=== PATIENT | male | born 1965 | race Caucasian/White ===

== ENCOUNTER 2017-07-17 14:59 | Emergency (ER) | payer OTHER ==
[~2017-07-17] VITALS: Ht 180.3 cm; Wt 88.5 kg
[2017-07-17 15:25] VITALS: BP 125/69
--- NOTE | 2017-07-17 18:07 | NUR ---
Patient to bed 05.
--- NOTE | 2017-07-17 18:08 | NUR ---
PT PRESENTS TO ER W/C/O RIGHT UPPER TOOTHACHE X1 WEEK. PT DENIES ANY MEDICAL HX.DENIES N/V/D; SKIN IS PINK/WARM/DRY; AAOX4 WITH EVEN AND STEADY GAIT; LUNGS CLEAR BL; HR EVEN AND REGULAR; PT DENIES ANY FEVER, CP, SOB, OR COUGH AT THIS TIME; PATIENT STATES PAIN OF 10/10 AT THIS TIME; VSS; PATIENT POSITIONED FOR COMFORT; HOB ELEVATED; BEDRAILS UP X2; BED DOWN. ER MD MADE AWARE OF PT STATUS.
--- NOTE | 2017-07-17 18:12 | NUR ---
Patient being evaluated by FOWER at bedside.
[2017-07-17] MEDS ORDERED: cefTRIAXone 1,000 MG in LIDOCAINE 1% ED 2.1 ML IM ONE (18:20)
[2017-07-17] MEDS ORDERED: KETOROLAC 60 MG/2 ML VIAL IM ONE (18:20)
[2017-07-17 18:46] VITALS: BP 121/64
--- NOTE | 2017-07-17 18:46 | NUR ---
Patient discharged with v/s stable. Written and verbal after care instructions given and explained. Patient alert, oriented and verbalized understanding of instructions. Ambulatory with steady gait. All questions addressed prior to discharge. ID band removed. Patient advised to follow up with PMD. Rx of CLINDAMYCIN HCL & FIORICET given. Patient educated on indication of medication including possible reaction and side effects. Opportunity to ask questions provided and answered.
== END 2017-07-17 18:46 | disposition home or self-care (01) ==
LOC: MED 14:59
DX: K05.6 Periodontal disease, unspecified (principal)
CPT/HCPCS: 96372; 99284; J0696; J1885; J2001

== ENCOUNTER 2017-08-12 06:55 | Emergency (ER) | payer OTHER ==
[~2017-08-12] VITALS: Ht 180.3 cm; Wt 93.4 kg
[2017-08-12 07:02] VITALS: BP 154/73
--- NOTE | 2017-08-12 07:25 | NUR ---
Patient being evaluated by physician at bedside.
--- NOTE | 2017-08-12 07:25 | NUR ---
PATIENT PRESENTS TO ED WITH W/ C/O BACK PAIN X LAST SATURDAY. PT STATES HURTED HIS BACK WHILE PLAYING WITH [employer]. MED HX BORN WITH SPINA BIFIDA. PT STATES PAIN IS ALLEVIATED BY SITTING. DENIES N/V/D; SKIN IS PINK/WARM/DRY; AAOX4 WITH EVEN AND STEADY GAIT; LUNGS CLEAR BL; HR EVEN AND REGULAR; PT DENIES ANY FEVER, CP, SOB, OR COUGH AT THIS TIME; PATIENT STATES PAIN OF 8/10 AT THIS TIME;PATIENT POSITIONED FOR COMFORT; HOB ELEVATED; BEDRAILS UP X2; BED DOWN. ER MD MADE AWARE OF PT STATUS.
[2017-08-12] MEDS ORDERED: KETOROLAC 60 MG/2 ML VIAL IM ONE (07:40)
[2017-08-12] MEDS ORDERED: HYDROmorphone PFS 2 MG/ML SYR IM ONE (07:40)
[2017-08-12] MEDS ORDERED: diphenhydrAMINE 50 MG/ML VIAL IM ONE (07:40)
--- NOTE | 2017-08-12 08:42 | NUR ---
Note zander in EDM - 08/12/17 at 0843 by MEDTREVER Patient discharged with v/s stable. Written and verbal after care instructions given and explained. Patient alert, oriented and verbalized understanding of instructions. Carried with steady gait. All questions addressed prior to discharge. ID band removed. Patient advised to follow up with PMD. Rx of TRAMADOL given. Patient educated on indication of medication including possible reaction and side effects. Opportunity to ask questions provided and answered.
[2017-08-12 08:43] VITALS: BP 128/78
== END 2017-08-12 08:42 | disposition home or self-care (01) ==
LOC: MED 06:55
DX: M54.5 Low back pain (principal); G89.29 Other chronic pain
CPT/HCPCS: 96372; 99284; J1170; J1200; J1885

== ENCOUNTER 2018-04-03 14:31 | Emergency (ER) | payer OTHER ==
[~2018-04-03] VITALS: Ht 180.3 cm; Wt 93.0 kg
[2018-04-03 14:43] VITALS: BP 123/71
[2018-04-03] MEDS ORDERED: MORPHINE SULFATE 2 MG/ML SYR IM ONE (16:45)
[2018-04-03] MEDS ORDERED: KETOROLAC 60 MG/2 ML VIAL IM ONE (16:45)
[2018-04-03 18:01] VITALS: BP 123/73
== END 2018-04-03 18:01 | disposition home or self-care (01) ==
LOC: MED 14:31
DX: G89.29 Other chronic pain (principal); M54.5 Low back pain
CPT/HCPCS: 96372; 99284; J1885; J2270

== ENCOUNTER 2018-04-20 14:14 | Emergency (ER) | payer OTHER ==
[~2018-04-20] VITALS: Ht 180.3 cm; Wt 91.2 kg
[2018-04-20 14:18] VITALS: BP 153/87
[2018-04-20] MEDS ORDERED: MORPHINE SULFATE 2 MG/ML SYR IM ONE (15:15)
[2018-04-20] MEDS ORDERED: KETOROLAC 60 MG/2 ML VIAL IM ONE (15:15)
[2018-04-20 16:15] VITALS: BP 141/72
== END 2018-04-20 16:16 | disposition home or self-care (01) ==
LOC: MED 14:14
DX: M54.9 Dorsalgia, unspecified (principal); G89.29 Other chronic pain
CPT/HCPCS: 96372; 99284; J1885; J2270